=== PATIENT | male | born 1975 | race Caucasian/White ===

== ENCOUNTER 2021-04-02 11:21 | Emergency (ER) | payer OTHER, SELFPAY ==
--- NOTE | 2021-04-02 11:28 | ED_ITS ---
Documented by User: Marty De Souza MD 04/13/21 23:34 HPI - Wound/Laceration General: Chief Complaint: Wound/Laceration Stated Complaint: L ARM LAC Time Seen by Provider: 04/02/21 11:28 History of Present Illness: HPI narrative: Mr. Winston is a 45-year-old gentleman without significant past medical history presents to the emergency department due to laceration. 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 He describes venous bleeding but no pulsatile bright red bleeding. He denies numbness or tingling. Some associated discomfort within expected limits and worse without specific exacerbating factors. No other significant change to health, specific exacerbating or alleviating factors identified. Review of Systems General: Reports: 10 or more systems reviewed and unremarkable except in HPI and below PFSH ED PFSH: Medical History No pertinent past medical history Surgical History (Reviewed 04/02/21 @ 11: by Marty De Souza MD) No significant past surgical history Family History (Reviewed 04/02/21 @ 11: by Marty De Souza MD) Mother Hypertension Social History Smoking and tobacco status: never smoked Second hand smoke exposure: No Smoking risk assessment/counseling performed?: No Alcohol intake: current Alcohol intake frequency: 0-2 Drinks per Day Alcohol type: beer Counseling given: No Desire information about substance/drug rehabilitation?: No Counseling given: No Adopted: No Caregiver/support person: No Lives independently: Yes Household members: spouse Housing: House Marital status: Number of children: 3 Highest education level completed: High School Graduate service: No Current occupational status: employed Pets and animals: No History of recent travel: No Physical Exam Narrative: EXAM NARRATIVE: GENERAL/CONSTITUTIONAL - well-appearing. No acute distress. Eyes -no conjunctival injection, no conjunctival injection ENMT - Atraumatic external nose and ears. Moist mucous membranes NECK - supple. trachea midline CARDIOVASCULAR - tachycardic rate and regular rhythm. RESPIRATORY - No retractions or accessory muscle use. ABDOMEN/GI -no guarding. No distention. MSK -approximately 8 cm laceration to the anterior left forearm. Primarily exposing fatty layer. Distal CMS intact SKIN - Warm, Dry. Laceration is noted in MSK NEURO - alert and appropriately oriented. Moves all extremities equally. Course ED course: - Patient was seen and evaluated by me at bedside -Vital signs obtained - Initial evaluation notable for exam as noted above - Imaging notable for no radiopaque foreign body - Laceration repaired by Tone Lea JOURNEYMAN PRESSMAN, satisfactory closure without comp - Upon serial reexamination after treatment the patient was improved - Based on patient history, evaluation, labs, and imaging as interpreted the most likely cause of the patient's condition is laceration - The results of ED evaluation were discussed with the patient including prescriptions and/or symptomatic cares (if applicable) including appropriate and responsible use, followup plan, and return precautions. The patient verbalized understanding and felt safe for discharge. - Patient discharged in satisfactory condition. Vital Signs: Vital signs: Vital Signs Pulse Rate 108 H 04/02/21 13:23 Respiratory Rate 20 H 04/02/21 13:23 Blood Pressure 175/105 04/02/21 13:23 Pulse Oximetry 95 04/02/21 13:23 MDM - Wound/Laceration Medical Records: Attestation: I reviewed the patient's medical records. Lab Data: Attestation: I reviewed the patient's lab results. Discharge Plan Discharge Patient Disposition: Home Clinical Impression: Laceration Condition: Stable Prescriptions: No Action famciclovir 500 mg tablet 500 mg PO Q8H 7 Days Qty: 21 RF: 0 clotrimazole-betamethasone 1-0.05 % cream 1 applic topical BID 14 Days Qty: 45 RF: 0 Discharge Orders: Discharge ED (Routine); Ordered 04/02/21 Ordered By: Marty De Souza Referrals: Araceli Au FNP-C [Primary Care Provider] - Discharge Diet: Usual diet Discharge Activity: Increase activity as tolerated and Limit activity as instructed Patient Instructions: Care For Your Stitches (ED), Laceration (ED) Activity Restrictions/Additional Instructions: Thank you for visiting the emergency department. You were seen and evaluated for laceration. This was repaired with stitches. Given circumstances and examination of the wound you will be placed on antibiotics to help prevent infection. Please watch for signs of infection and return to the emergency department for uncontrolled pain, significant or worsening redness, purulent drainage, fevers, chills, or anything else that you are concerned about and feel needs emergency department evaluation. Your heart rate was mildly elevated. Please ensure that you are staying hydrated. Please return for chest pain, shortness of breath, lightheadedness, dizziness. Please follow-up with your primary care provider. Stitches need removal in 7 to 10 days. You may either return here or go to your primary care or any urgent care to have these removed. Coding Level of Care Code ED Curriculum Coordinator for Chg Fwd Documented by User: LEROY Sosa 04/02/21 13:37 HPI - Wound/Laceration General: Chief Complaint: Wound/Laceration Stated Complaint: L ARM LAC Time Seen by Provider: 04/02/21 11:28 PFSH ED PFSH: Medical History No pertinent past medical history Surgical History No significant past surgical history Family History Mother Hypertension Social History Smoking and tobacco status: never smoked Second hand smoke exposure: No Smoking risk assessment/counseling performed?: No Alcohol intake: current Alcohol intake frequency: 0-2 Drinks per Day Alcohol type: beer Counseling given: No Desire information about substance/drug rehabilitation?: No Counseling given: No Adopted: No Caregiver/support person: No Lives independently: Yes Household members: spouse Housing: House Marital status: Number of children: 3 Highest education level completed: High School Graduate service: No Current occupational status: employed Pets and animals: No History of recent travel: No Procedures Laceration Laceration 1: Site: upper extremity Side (If applicable): left Size (cm): 8 Description: irregular Depth: simple, single layer Local Anesthetic: lidocaine 1% Amount of anesthesia used (mL): 5 Pre-repair: wound explored, irrigated extensively and deep structures intact Skin layer closed with: nylon Size (cm): 4-0 Number of sutures: 12 Technique: simple, interrupted Course Vital Signs: Vital signs: Vital Signs Pulse Rate 108 H 04/02/21 13:23 Respiratory Rate 20 H 04/02/21 13:23 Blood Pressure 175/105 04/02/21 13:23 Pulse Oximetry 95 04/02/21 13:23 Discharge Plan Discharge Patient Disposition: Home Clinical Impression: Laceration Condition: Stable Prescriptions: No Action famciclovir 500 mg tablet 500 mg PO Q8H 7 Days Qty: 21 RF: 0 clotrimazole-betamethasone 1-0.05 % cream 1 applic topical BID 14 Days Qty: 45 RF: 0 Discharge Orders: Discharge ED (Routine); Ordered 04/02/21 Ordered By: Marty De Souza Referrals: Araceli Au FNP-C [Primary Care Provider] - Discharge Diet: Usual diet Discharge Activity: Increase activity as tolerated and Limit activity as instructed Patient Instructions: Care For Your Stitches (ED), Laceration (ED) Activity Restrictions/Additional Instructions: Thank you for visiting the emergency department. You were seen and evaluated for laceration. This was repaired with stitches. Given circumstances and examination of the wound you will be placed on antibiotics to help prevent infection. Please watch for signs of infection and return to the emergency department for uncontrolled pain, significant or worsening redness, purulent drainage, fevers, chills, or anything else that you are concerned about and feel needs emergency department evaluation. Your heart rate was mildly elevated. Please ensure that you are staying hydrated. Please return for chest pain, shortness of breath, lightheadedness, dizziness. Please follow-up with your primary care provider. Stitches need removal in 7 to 10 days. You may either return here or go to your primary care or any urgent care to have these removed. Coding Level of Care Code ED Curriculum Coordinator for Scout Ruiz
[2021-04-02 11:36] VITALS: BMI 32.5
[2021-04-02 11:41] VITALS: BP 175/105; PULSE 108; RESP 20; O2SAT 95
--- NOTE | 2021-04-02 11:45 | XRR_ITS ---
PROCEDURE INFORMATION: Exam: XR Left Forearm Exam date and time: 04/02/2021 11:45 AM Age: 45 years old Clinical indication: Injury or trauma; Fall; Laceration; Arm, lower; Left; Additional info: Laceration mid-distal anterior forearm, ? foreign body TECHNIQUE: Imaging protocol: XR Left forearm. Views: 2 views. COMPARISON: No relevant prior studies available. FINDINGS: Bones/joints: Normal. Soft tissues: Soft tissue laceration over the volar aspect of the distal forearm. XR/XR forearm LT 2V [id number] IMPRESSION: 1. Soft tissue laceration over the volar aspect of the distal forearm. 2. No radiopaque foreign body.
--- NOTE | 2021-04-02 12:53 | ED_ITS ---
HPI - Wound/Laceration General: Chief Complaint: Wound/Laceration Stated Complaint: L ARM LAC Time Seen by Provider: 04/02/21 11:28 [facility] ED PFSH: Medical History (Reviewed 04/02/21 @ : by Marty De Souza MD) No pertinent past medical history Surgical History (Reviewed 04/02/21 @ : by Marty De Souza MD) No significant past surgical history Family History (Reviewed 04/02/21 @ : by Marty De Souza MD) Mother Hypertension Social History (Reviewed 04/02/21 @ : by Marty De Souza MD) Smoking and tobacco status: never smoked Second hand smoke exposure: No Smoking risk assessment/counseling performed?: No Alcohol intake: current Alcohol intake frequency: 0-2 Drinks per Day Alcohol t ype: beer Counseling given: No Desire information about substance/drug rehabilitation?: No Counseling given: No Adopted: No Caregiver/support person: No Lives independently: Yes Household members: spouse Housing: House Marital status: Number of children: 3 Highest education level completed: High School Graduate service: No Current occupational status: employed Pets and animals: No History of recent travel: No Procedures Laceration Laceration 1: Site: upper extremity Side (If applicable): left Size (cm): 8 Description: irregular and contaminated Depth: simple, single layer Local Anesthetic: lidocaine 1% Amount of anesthesia used (mL): 5 Pre-repair: wound explored and irrigated extensively Skin layer closed with: nylon (12) Size (cm): 4-0 Number of sutures: 12 Technique: simple, interrupted Course Vital Signs: Vital signs: Vital Signs Pulse Rate 108 H 04/02/21 11:41 Respiratory Rate 20 H 04/02/21 11:41 Blood Pressure 175/105 04/02/21 11:41 Pulse Oximetry 95 04/02/21 11:41 Discharge Plan Discharge Patient Disposition: Home Clinical Impression: Laceration Condition: Stable Prescriptions: New cephalexin 500 mg capsule 500 mg PO Q6H 7 Days Qty: 28 RF: 0 No Action famciclovir 500 mg tablet 500 mg PO Q8H 7 Days Qty: 21 RF: 0 clotrimazole-betamethasone 1-0.05 % cream 1 applic topical BID 14 Days Qty: 45 RF: 0 Referrals: Roe,Araceli, EARLY BREASTFEEDING CARE SPECIALIST-C [Primary Care Provider] - Discharge Diet: Usual diet Discharge Activity: Increase activity as tolerated and Limit activity as instructed Patient Instructions: Care For Your Stitches (ED), Laceration (ED) Activity Restrictions/Additional Instructions: Thank you for visiting the emergency department. You were seen and evaluated for laceration. This was repaired with stitches. Given circumstances and examination of the wound you will be placed on antibiotics to help prevent infection. Please watch for signs of infection and return to the emergency department for uncontrolled pain, significant or worsening redness, purulent drainage, fevers, chills, or anything else that you are concerned about and feel needs emergency department evaluation. Your heart rate was mildly elevated. Please ensure that you are staying hydrated. Please return for chest pain, shortness of breath, lightheadedness, dizziness. Please follow-up with your primary care provider. Stitches need removal in 7 to 10 days. You may either return here or go to your primary care or any urgent care to have these removed. Coding Level of Care Code ED Traffic Law Attorney for [employer]uot Ruiz
[2021-04-02] MEDS: tetanus-dipt-pertussis 0.5 mL SDV IM (13:06)
[2021-04-02 13:23] VITALS: BP 175/105; PULSE 108; RESP 20; O2SAT 95
== END 2021-04-02 13:25 | disposition home or self-care (01) ==
PROVIDERS: Emergency Provider Emergency Medicine; PCP Nurse Practitioner Family
DX: S51.812A Laceration without foreign body of left forearm, initial encounter (principal); W26.8XXA Contact with other sharp object(s), not elsewhere classified, initial encounter; Z23 Encounter for immunization
CPT/HCPCS: 12004; 73090; 90471; 90715; 99283

== ENCOUNTER 2022-07-24 09:58 | Emergency (ER) | payer BC, MEDICAID, SELFPAY ==
[2022-07-24] VITALS (12 sets, daily range): BP systolic 121–130; BP diastolic 72–85; PULSE 104–109; RESP 16–18; TEMP 36.2–37.2; O2SAT 97–100; BMI 29.0
--- NOTE | 2022-07-24 12:46 | XRR_ITS ---
PROCEDURE INFORMATION: Exam: XR Abdomen Exam date and time: 07/24/2022 12:51 PM Age: 46 years old Clinical indication: Nausea and vomiting; Abdominal pain; Prior surgery; Surgery type: Hip; Additional info: Abd pain, n/v TECHNIQUE: Imaging protocol: Radiologic exam of the abdomen. Views: Frontal supine view of the abdomen. 1 View. COMPARISON: No relevant prior studies available. FINDINGS: Gastrointestinal tract: Bowel gas pattern is unremarkable. No sign of obstruction. Intraperitoneal space: No gross free air. Bones/joints: There is mild degenerative disease in the lumbar spine. The right hip prosthesis is intact and well aligned. XR/XR abdomen 1V* [id number] IMPRESSION: No acute findings.
--- NOTE | 2022-07-24 13:27 | PC.NURSE ---
rounded on pt, vitals retaken
[2022-07-24 14:04] LABS: Basophils # 0.1 10^3/uL (0.0-0.1); Basophils % 0.7 %; Eosinophils # 0.6 10^3/uL (0.0-0.8); Eosinophils % 5.4 %; Hematocrit 26.6 % (42.0-52.0); Hemoglobin 8.5 g/dL (11.7-16.6); Lymphocytes # 1.3 10^3/uL (0.8-4.8); Lymphocytes % 10.9 %; Mean Corpuscular Volume 90.8 fl (80-94); Mean Platelet Volume 11.1 fL (7.4-10.4); Monocytes % 8.3 %; Neutrophils # 8.73 10^3/uL (1.8-7.7); Neutrophils % 74.1 %; Nucleated Red Blood Cells % 0 %; Platelet Count 209 10^3/cmm (130-400); Red Blood Count 2.93 10^6/uL (4.1-5.3); Red Cell Distribution Width 14.7 % (12.1-15.1); White Blood Count 11.8 10^3/uL (4.0-10.0)
[2022-07-24 14:17] LABS: INR 1.29 (0.8-1.2)
[2022-07-24 14:23] LABS: Alanine Aminotransferase 103 U/L (0-41); Albumin Level 3.6 g/dL (3.5-5.2); Alkaline Phosphatase 719 U/L (40-130); Anion Gap 16.3 (5-19); Aspartate Amino Transferase 110 U/L (0-40); Blood Urea Nitrogen 15 mg/dL (6-20); Carbon Dioxide 26 mmol/L (22-29); Chloride 96 mmol/L (98-107); Globulin 2.9 g/dL (1.3-4.6); Glomerular Filtration Rate 144.4 mL/min (90-130); Glucose 155 mg/dL (65-115); Lipase 17 U/L (13-60); Osmolality Calculated 282 mOsm/kg (285-295); Potassium 4.3 mmol/L (3.5-5.1); Sodium 134 mmol/L (136-145); Total Bilirubin 1.2 mg/dL (0.15-1.2); Total Protein 6.5 g/dL (6.6-8.7)
--- NOTE | 2022-07-24 14:37 | ED_ITS ---
HPI - Abdominal Pain General: Chief Complaint: Abdominal Pain Stated Complaint: Light headed, feeling sick. Time Seen by Provider: 07/24/22 14:28 Source: patient Mode of arrival: ambulatory History of Present Illness: 46-year-old female who presents to the emergency room with complaints of being lightheaded sick to stomach chronic abdominal pain for last couple of months. He has noticed his stools have turned black he has been using Pepto-Bismol on occasion. Is been going on for about the last 6 months. Denies any dysuria urgency or frequency has not had any hematemesis he has had this small amount of black flecks and some vomitus he had. Patient has no significant past medical history and course taking his regular history patient admits to drinking 12 pack or more per day. MD elicited complaint: abdominal pain Pertinent past history: none Onset (ago): month(s) (6) Pain Consistency: intermittent Location: Epigastric Severity: mild Quality: aching Radiation: none Migration to: no migration Exacerbating factors: nothing Relieving factors: nothing Associated Symptoms: Reports coffee ground emesis (Small flecks of black material in vomitus no large amounts); Denies anorexia, belching, bloating, change in bowel habits, change in stool character, chills, constipation, GI cramping, diarrhea, dyspepsia, dysuria, excessive flatus, fever(s), heartburn, hematochezia, hematuria, hematemesis, fecal incontinence, loose stools, melena, nausea, poor appetite, syncope and vomiting Review of Systems Const: Denies: fever(s), chills, fatigue or malaise ENMT: Denies: throat pain, ear or mastoid pain, nasal discharge or nasal congestion Card: Denies: chest pain, palpitations, irregular heart rhythm, edema, swelling of feet/ankles or syncope Resp: Denies: dyspnea, productive cough or non-productive cough GI: Reports: abdominal pain and coffee ground emesis (Small flecks of black material in vomitus no large amounts); Denies: nausea, vomiting, hematemesis, heartburn, diarrhea, constipation, bloating, GI cramping, belching, excessive flatus, fecal incontinence, change in bowel habits, change in stool character, hematochezia or melena : Denies: flank pain, dysuria, urinary frequency, urinary urgency or hematuria Skin/Breast: Denies: rash or pruritus PFSH ED PFSH: Medical History No pertinent past medical history Surgical History No significant past surgical history Family History Mother Hypertension Social History (Updated 07/24/22 @ 14:44 by Homero Woo DO) Smoking and tobacco status: never smoked Second hand smoke exposure: No Smoking risk assessment/counseling performed?: No Alcohol intake: current Alcohol intake frequency: 3 or more drinks per day Alcohol type: beer Alcohol use comment: 12 pack a day beer plus Counseling given: No Desire information about substance/drug rehabilitation?: No Counseling given: No Adopted: No Caregiver/support person: No Lives independently: Yes Household members: spouse Housing: House Marital status: Number of children: 3 Highest education level completed: High School Graduate service: No Current occupational status: employed Pets and animals: No Physical Exam Const: COMMON NORMALS: no acute distress GENERAL APPEARANCE: cooperative and comfortable ORIENTATION/CONSCIOUSNESS: Yes awake, Yes oriented to person, Yes oriented to place and Yes oriented to time HENMT: COMMON NORMALS: normocephalic, atraumatic and hearing grossly normal bilaterally HEAD & SCALP: normocephalic and atraumatic Resp: COMMON NORMALS: normal respiratory effort, No retractions, No use of accessory muscles and clear to auscultation bilaterally AUSCULTATION: clear to auscultation bilaterally Cardio: COMMON NORMALS: regular rate, regular rhythm and No murmurs present (Cardio) RATE: regular rate RHYTHM: regular rhythm GI: COMMON NORMALS: Soft to palpation and No hepatosplenomegaly present AUSCULTATION: Yes normoactive bowel sounds PALPATION: Yes Soft to palpation, No Tenderness to palpation present (GI), No Guarding due to palpation present (GI) and Yes No hepatosplenomegaly present Extremity: COMMON NORMALS: normal to inspection, capillary refill normal, no clubbing, cyanosis or edema, no calf tenderness and no pedal edema Neuro: SENSORIUM/ORIENTATION: Yes oriented to person, Yes oriented to place and Yes oriented to time Skin: COMMON NORMALS: no rashes or lesions noted GENERAL SKIN EXAM: no rashes or lesions noted Course Vital Signs: Vital signs: Vital Signs Temperature 98.9 F 07/24/22 13:24 Pulse Rate 104 H 07/24/22 13:24 Respiratory Rate 18 07/24/22 17:59 Blood Pressure 130/85 07/24/22 15:05 Pulse Oximetry 99 07/24/22 15:05 Oxygen Delivery Me thod 07/24/22 13:24 MDM - Abdominal Pain Medical Decision Making Mass in the left upper quadrant emanating from tail of the pancreas with what appears to be metastasis to the liver. Patient has Hemoccult positive stools however his BUN is normal. Long discussion with patient and his . Shows hemoglobin rechecked in the next 1 to 2 days. We will set him up for biopsy. He has been given fluids. We will discharge patient home on a PPI as well as hydrocodone and promethazine. We will refer to radiology for CT-guided biopsy. Medical Records I reviewed the patient's medical records. Lab Data I reviewed the patient's lab results. 07/24/22 13:30 07/24/22 13:30 Labs/Radiology: Radiology Impressions Abdomen X-Ray 07/24/22 12:46 IMPRESSION: No acute findings. Abdomen/Pelvis CT 07/24/22 14:37 IMPRESSION: 1. Left upper quadrant mass which appears to be arising from the pancreas body and tail invading the spleen, stomach as well as the superior pole of the left kidney. 2. Metastatic disease to the liver with a small amount of ascites. 3. Metastatic lymph node suspected in the mid abdomen. COMMENTS: Consistent with the [employer]'s Incidental Findings Committee white paper (J Am Kumar Radiol 2018): Any incidental renal lesion less than 1 cm or classified as too small to characterize, or any incidental cystic renal lesion characterized as simple-appearing, is likely benign. No follow-up imaging is recommended for these lesions per consensus recommendations based on imaging criteria. ADDENDUM: 07/24/22 0420 THIS REPORT CONTAINS FINDINGS THAT MAY BE CRITICAL TO PATIENT CARE. The findings were verbally communicated by me to HOMERO WOO at 4:32 PM CRAFT SUPERINTENDENT on 07/24/2022. The findings were acknowledged and understood. I In addition there is a mesenteric large implant seen just below the hemidiaphragm in the left upper quadrant measuring 36 x 20 mm image 07/01. Laboratory Results WBC 11.8 10^3/uL (4.0-10.0) H 07/24/22 13:30 RBC 2.93 10^6/uL (4.1-5.3) L 07/24/22 13:30 Hgb 8.5 g/dL (11.7-16.6) L 07/24/22 13:30 Hct 26.6 % (42.0-52.0) L 07/24/22 13:30 MCV 90.8 fl (80-94) 07/24/22 13: MCH 29.0 pg (28.0-34.0) 07/24/22 13: MCHC 32.0 g/dL (30.0-36.0) 07/24/22 13: RDW 14.7 % (12.1-15.1) 07/24/22 13:30 Plt Count 209 10^3/cmm (130-400) 07/24/22 13: MPV 11.1 fL (7.4-10.4) H 07/24/22 13:30 Neut % (Auto) 74.1 % 07/24/22 13:30 Lymph % (Auto) 10.9 % 07/24/22 13:30 [place] % (Auto) 8.3 % 07/24/22 13:30 Eos % (Auto) 5.4 % 07/24/22 13:30 Baso % (Auto) 0.7 % 07/24/22 13:30 Neut # (Auto) 8.73 10^3/uL (1.8-7.7) H 07/24/22 13:30 Lymph # (Auto) 1.3 10^3/uL (0.8-4.8) 07/24/22 13:30 [place] # (Auto) 1.0 10^3/uL (0.2-0.9) H 07/24/22 13:30 Eos # (Auto) 0.6 10^3/uL (0.0-0.8) 07/24/22 13:30 Baso # (Auto) 0.1 10^3/uL (0.0-0.1) 07/24/22 13:30 Nucleated RBC % (auto) 0 % 07/24/22 13:30 Nucleated RBCs # 0.0 /100WBC 07/24/22 13:30 PT 16.50 SECONDS (12.1-14.9) H 07/24/22 13:30 INR 1.29 (0.8-1.2) H 07/24/22 13:30 Sodium 134 mmol/L (136-145) L 07/24/22 13:30 Potassium 4.3 mmol/L (3.5-5.1) 07/24/22 13:30 Chloride 96 mmol/L (98-107) L 07/24/22 13:30 Carbon Dioxide 26 mmol/L (22-29) 07/24/22 13:30 Anion Gap 16.3 (5-19) 07/24/22 13:30 BUN 15 mg/dL (6-20) 07/24/22 13:30 Creatinine 0.6 mg/dL (0.7-1.2) L 07/24/22 13:30 GFR Calculation 144.4 mL/min (90-130) H 07/24/22 13:30 Glucose 155 mg/dL (65-115) H 07/24/22 13:30 Calculated Osmolality 282 mOsm/kg (285-295) L 07/24/22 13:30 Calcium 9.0 mg/dL (8.5-10.5) 07/24/22 13:30 Total Bilirubin 1.2 mg/dL (0.15-1.2) 07/24/22 13:30 AST 110 U/L (0-40) H 07/24/22 13:30 ALT 103 U/L (0-41) H 07/24/22 13:30 Alkaline Phosphatase 719 U/L (40-130) H 07/24/22 13:30 Ammonia 29 umol/L (16-60) 07/24/22 14:42 Total Protein 6.5 g/dL (6.6-8.7) L 07/24/22 13:30 Albumin 3.6 g/dL (3.5-5.2) 07/24/22 13:30 Globulin 2.9 g/dL (1.3-4.6) 07/24/22 13:30 Lipase 17 U/L (13-60) 07/24/22 13:30 Discharge Plan Discharge Patient Disposition: Home Clinical Impression: Pancreatic mass, Cancer, metastatic to liver, Anemia Condition: Stable Prescriptions: New Protonix 40 mg tablet,delayed release (DR/EC) 40 mg PO DAILY Qty: 30 0RF hydrocodone-acetaminophen 5-325 mg tablet 1 tab PO Q6H PRN (Reason: pain) Qty: 30 0RF ondansetron HCl 4 mg tablet 4 mg PO Q6H PRN (Reason: nausea and vomiting) Qty: 20 0RF No Action ibuprofen 200 mg Tablet 800 mg PO Q6H PRN (Reason: Pain) acetaminophen 325 mg Capsule 650 mg PO QID PRN (Reason: Pain) Aleve 220 mg Capsule 880 mg PO Q12H PRN (Reason: Pain) Discharge Orders: Discharge ED (Routine); Ordered 07/24/22 Ordered By: Homero Woo Referrals: Araceli Au FNP-C [Primary Care Provider] - Discharge Diet: Usual diet Discharge Activity: Resume usual activity Patient Instructions: Opioid Safety, Pain Management Activity Restrictions/Additional Instructions: LargeYou were seen for complaints of nausea vomiting back pain and weight loss. CT shows significantly pancreatic mass and changes in the liver concerning for metastatic disease. We will make arrangements for you to have a biopsy of these lesions anticipate a CT-guided liver biopsy with radiology Case management will help make those arrangements. Recommend that you abstain from alcohol. You are given prescriptions for pantoprazole 40 mg daily ondansetron and hydrocodone for pain avoid any ibuprofen or aspirin. Your hemoglobin was also significantly lowered and you should have a repeat hemoglobin done in 2 days. Coding Level of Care Code ED Technical Services Assistant for Scout Ruiz
--- NOTE | 2022-07-24 14:37 | CTR_ITS ---
PROCEDURE INFORMATION: Exam: CT Abdomen And Pelvis Without Contrast Exam date and time: 07/24/2022 3:12 PM Age: 46 years old Clinical indication: Abdominal pain TECHNIQUE: Imaging protocol: Computed tomography of the abdomen and pelvis without contrast. Radiation optimization: All CT scans at this facility use at least one of these dose optimization techniques: automated exposure control; mA and/or kV adjustment per patient size (includes targeted exams where dose is matched to clinical indication); or iterative reconstruction. REPORTING DATA: Count of CT and Cardiac NM exams in prior 12 months: This patient has received 0 known CTs and 0 known cardiac nuclear medicine studies in the 12 months prior to the current study. COMPARISON: CR XR abdomen 1V* [id number] 07/24/2022 12:51 PM RADIATION DOSE METRICS: Total DLP (mGy-cm): 859.22 FINDINGS: Lungs: 5 mm right lower lobe granuloma. Liver: Multiple ill-defined lesions are seen throughout the liver suggestive of advanced metastatic disease. Gallbladder and bile ducts: Normal. No calcified stones. No ductal dilation. Pancreas: Large mass in the left upper quadrant possibly arising from the pancreas measuring over 116 x 101 mm. This is growing into the spleen as well as the stomach. Spleen: See Pancreas finding. Adrenal glands: Normal. No mass. Kidneys and ureters: The mass in the left upper quadrant grows to and possibly invades the superior aspect of the left kidney. There is no hydronephrosis. Stomach and bowel: Diverticulosis. Appendix: The appendix is unremarkable in the right lower quadrant. Intraperitoneal space: Small amount of pelvic fluid. Vasculature: Unremarkable. No abdominal aortic aneurysm. Lymph nodes: Multiple lymph nodes within the abdomen separate indistinct from the mass measuring up to 20 x 13 mm suggestive of metastatic disease. Urinary bladder: Unremarkable as visualized. Reproductive: Unremarkable as visualized. Bones/joints: Mild arthritic changes. Artifact from a right hip replacement. Soft tissues: Unremarkable. CT/CT abdomen pelvis wo con [id number] IMPRESSION: 1. Left upper quadrant mass which appears to be arising from the pancreas body and tail invading the spleen, stomach as well as the superior pole of the left kidney. 2. Metastatic disease to the liver with a small amount of ascites. 3. Metastatic lymph node suspected in the mid abdomen. COMMENTS: Consistent with the [employer] [employer]'s Incidental Findings Committee white paper (J Am Kumar Radiol 2018): Any incidental renal lesion less than 1 cm or classified as too small to characterize, or any incidental cystic renal lesion characterized as simple-appearing, is likely benign. No follow-up imaging is recommended for these lesions per consensus recommendations based on imaging criteria.
[2022-07-24 15:10] LABS: Ammonia 29 umol/L (16-60)
[2022-07-24] MEDS: pantoprazole 40 MG in sodium chloride 0.9% (plus) 100 ML 20 MG IV (16:15)
--- NOTE | 2022-07-25 09:10 | DCPLANNER ---
Addendum entered by Latricia Ruiz 08/01/22 07:48: Patient had a CT scheduled - patient did attend Patient had a liver biopsy scheduled - patient did not attend Addendum entered by Latricia Ruiz 07/26/22 08:04: Patient has a CT abdomen scheduled for Sunday, July 26, 2022 at 9:00 Patient has a liver biopsy scheduled for July at 10:00 Original Note: sr. strategic sourcing manager had message to schedule an outpatient CT abdomen pelvis, and a CT guided biopsy. sr. strategic sourcing manager faxed signed order to centralized scheduling, who will call patient with appointment information.
== END 2022-07-24 18:00 | disposition home or self-care (01) ==
PROVIDERS: Emergency Medicine; Emergency Provider Family Medicine; PCP Nurse Practitioner Family
DX: C25.9 Malignant neoplasm of pancreas, unspecified (principal); C78.7 Secondary malignant neoplasm of liver and intrahepatic bile duct; D64.9 Anemia, unspecified
CPT/HCPCS: 36415; 74018; 74176; 80053; 82140; 83690; 85025; 85610; 96365; 96366; 99285; C9113

== ENCOUNTER 2022-07-26 08:19 | Outpatient (CLI) | payer BC, MEDICAID, SELFPAY ==
--- NOTE | 2022-07-26 08:28 | CT_ITS ---
WS: [id number] CT ABDOMEN AND PELVIS WITH CONTRAST HISTORY: PANCREATIC MASS, LIVER TECHNIQUE: Imaging performed of the abdomen and pelvis with IV contrast. Single phase imaging of the abdomen. Coronal and sagittal reformats are submitted. All CT scans at [facility] use at [facility] [facility] one of these dose optimization techniques: automated exposure control; mA and/or kV adjustment per patient size (includes targeted exams where dose is matched to clinical indication); or iterative re construction. IV CONTRAST: Omnipaque 350; 100 mL IV. Oral contrast: Yes. DLP: 638.13 mGy.cm COMPARISON: Noncontrast CT 07/24/2022 Lower thorax: Spiculated 11 mm nodule medial RIGHT lower lobe. Heart is normal size. No hiatal hernia . Liver/biliary system: Numerous low-attenuation masses scattered throughout the liver most consistent with metastatic disease. The largest with irregular borders in the RIGHT lobe of the liver measures 2 .5 x 2.8 cm. No bile duct dilatation. Portal vein is patent. Tumor does encase the RIGHT portal vein and may be partially occluded. Gallbladder: Mildly contracted. Pancreas: Abnormal appearance of the distal pancreatic body and tail. There is a large mass of low at tenuation centered in the LEFT upper quadrant with extension into the pancreas, stomach, splenic hilu m and superior pole of the LEFT kidney. Low-attenuation mass with mild enhancement measures 12.0 x 10.2 x 9.0 cm. This mass is contiguous to the distal pancreas and extends into the superior pole of the RIGHT LEFT kidney and the splenic hilum and the gastric wall. Spleen: Spleen is normal size. Hilar invasion from the tumor in the LEFT upper abdomen. There is akil tional area of decreased attenuation in the spleen which could be a focal metastatic deposit. Adrenal glands: Normal RIGHT adrenal gland. LEFT adrenal gland is not well visualized and is probably encased by the LEFT upper abdominal mass. Right kidney: Normal size kidney. Subtle low-attenuation area in the mid kidney. Left kidney: Normal size kidney. Soft tissue tumor invasion into the very superior pole of the kidney . Loss of the normal fat plane. Aorta: Normal. Lymphadenopathy: Small lymph nodes along the anterior surface of the liver. There are small mesenteri c nodules LEFT upper abdomen. Metastatic deposits throughout the mesentery. Additional mesenteric dep osit along the omentum LEFT upper abdomen. The largest mesenteric deposit measures 1.9 x 4.3 cm at th e level of the spleen. Free fluid: Small amount of free fluid in the pelvis. GI tract: Poor distention of the stomach due to tumor invasion. No small bowel obstruction. No colon obstruction. Abdominal wall: Unremarkable abdominal wall. No hernia. Pelvis: Small amount of free fluid in the pelvis. Nondistended urinary bladder. No inguinal lymph nod es. Bones: Prior RIGHT hip arthroplasty. CT/CT abdomen pelvis w con* [id number] IMPRESSION: 1. Large infiltrating soft tissue mass in the LEFT upper abdomen. Neoplastic m ass measures 12.0 x 10.2 x 9.0 cm. Mass invades and involves the distal pancrea tic body and tail, splenic hilum, superior pole RIGHT kidney and stomach. 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 2. Innumerable metastatic lesions within the liver. 3. Innumerable mesenteric and omental mesenteric deposits. 4. Spiculated 11 mm nodule medial RIGHT lower lobe. 5. Nonvisualization of a normal LEFT adrenal gland. Suspect invasion by LEFT u pper quadrant abdomen tumor. Recommendation: Biopsy for diagnosis. Endoscopy may be the most advantageous way to biopsy the mass in the LEFT upper quadrant. Alternatively ultrasound-guided liver biopsy. PET/CT imaging. Notified Dr. Ravi 07/26/2022 12:22 PM.
[2022-07-26] MEDS: iohexol 350 mg/mL 100 mL Btl IV (09:52)
[2022-07-26] MEDS: iohexol 350 mg/mL 100 mL Btl PO (09:52)
== END 2022-07-26 08:20 | disposition home or self-care (01) ==
LOC: RAD 08:24
PROVIDERS: PCP Nurse Practitioner Family; Visit Provider Family Medicine
DX: K86.89 Other specified diseases of pancreas (principal); C78.7 Secondary malignant neoplasm of liver and intrahepatic bile duct
CPT/HCPCS: 74177; Q9967

== ENCOUNTER 2022-07-27 08:53 | Day surgery (SDC) | payer BC, MEDICAID, SELFPAY ==
[2022-07-27 07:48] VITALS: BMI 29.0
[2022-07-27 09:04] VITALS: BP 135/78; PULSE 93; RESP 18; TEMP 36.9; O2SAT 99
[2022-07-27] MEDS: sodium chloride 0.9% 1,000 ML 30 ML IV (09:19)
--- NOTE | 2022-07-27 09:36 | ANES.PREANE2 ---
Pre-Anesthetic Assessment Height/Weight: Height 1.83 m Weight 97.069 kg Temp Pulse Resp BP Pulse Ox O2 Del Method 98.4 F 93 18 135/78 99 07/27/22 09:04 07/27/22 09:04 07/27/22 09:04 07/27/22 09:04 07/27/22 09:04 07/27/22 09:04 Operation Date: 07/27/22 10:00 Proposed Procedures p EGD 36675,K21.9(Not Applicable) - Homer Merino, DO Was Beta Ayla taken within 24 hours: N/A Was Clonidine taken within 24 hours: N/A Last intake: Intake Last Liquid Date 07/26/22 Last Liquid Time 22:30 Last Solid Date 07/26/22 Last Solid Time 22:30 Social Alcohol and No tobacco daily alcohol, last a couple days ago Exam alert, oriented x 3, clear to auscultation bilaterally and regular rate & rhythm Airway Submandibular: within normal limits Cervical ROM: within normal limits Mallampati: Class I Dentition: chipped Comments: Comments: front tooth chipped History/ROS No significant history except as noted Pulmonary None reported CV/HEM None reported None reported Hepatic Cirrhosis GI Gastroesophageal Reflux Disease Metabolic None reported liver mets cancer [facility] [place] chronic pain Neuropsych None reported Anesthetic Plan ASA status: 3 Anesthesia: Anesthesia Evaluation and MAC Risk of > 500 ml blood loss (7ml/kg in children): Yes, adequate IV access and fluids planned Medications/Allergies Home Medications Medication Instructions Recorded Confirmed Last Taken Type hydrocodone 5 mg-acetaminophen 325 1 tab PO Q6H PRN pain #30 tabs 07/24/22 07/27/22 07/27/22 Rx mg tablet ondansetron HCl 4 mg tablet 4 mg PO Q6H PRN nausea and 07/24/22 07/27/22 07/26/22 Rx vomiting #20 tabs pantoprazole 40 mg tablet,delayed 40 mg PO DAILY #30 tabs 07/24/22 07/27/22 07/26/22 Rx release (Protonix) magnesium hydroxide 400 mg/5 mL See Rx Instructions PO DAILY PRN 07/26/22 07/27/22 Unknown Rx oral suspension (Milk of Magnesia) constipation #355 mL sertraline 50 mg tablet (Zoloft) 50 mg PO DAILY #30 tabs 07/26/22 07/27/22 Unknown Rx Allergies Allergy/AdvReac Type Severity Reaction Status Date / Time No Known Allergies Allergy Unverified 07/27/22 09:02 Current Medications Generic Name Dose Route Start Last Admin Trade Name Sonya PRN Reason Stop Dose Admin Sodium Chloride 1,000 mls @ 30 mls/hr 07/27/22 09:00 07/27/22 09:19 Sodium Chloride 0.9% IV 07/28/22 08:59 30 mls/hr .Q24H JEREL Administration PFSH Anesthesia Medical History (Updated 07/26/22 @ 20:56 by RYLEE Greenfield) Anemia Cancer, metastatic to liver Daily consumption of alcohol 12 beer day years Pancreatic mass Surgical History History of hip replacement Right 09/01/21 Family History Mother Hypertension Denies family history of Dementia Cancer Stroke Social History Smoking and tobacco status: never smoked Second hand smoke exposure: No Smoking risk assessment/counseling performed?: No Alcohol intake: current Alcohol intake frequency: 3 or more drinks per day Alcohol type: beer Counseling given: No Desire information about substance/drug rehabilitation?: No Counseling given: No Adopted: No Caregiver/support person: No Lives independently: Yes Household members: spouse Housing: House Marital status: Number of children: 3 Highest education level completed: High School Graduate service: No Current occupational status: employed Pets and animals: No Data Anesthesia Cardiac Studies: No Data to Display
--- NOTE | 2022-07-27 09:38 | W.PM.OPSUD ---
Surgery/Procedure H&P Update DATE OF PROCEDURE: July 27, 2022 DATE H&P PERFORMED: 07/26/22 H&P UPDATE INFORMATION: I have reviewed H&P completed within last 30 days, I have examined patient prior to procedure and No changes to prior documentation PLANNED PROCEDURE: Operation Date: 07/27/22 10:00 Proposed Procedures p EGD [id number],K21.9(Not Applicable) - Homer Merino, DO
[2022-07-27 09:59] LABS: Hematocrit 28.4 % (42.0-52.0); Hemoglobin 8.8 g/dL (11.7-16.6)
[2022-07-27 10:16] VITALS: BP 106/69; PULSE 102; RESP 16; TEMP 36.4; O2SAT 95
[2022-07-27 10:27] VITALS: BP 116/77; PULSE 100; RESP 18; O2SAT 96
--- NOTE | 2022-07-27 13:30 | ANE.PACU2 ---
Inpatient post-anesthesia follow up: Airway intact: Yes Vital signs: Temperature 97.5 F Pulse Rate 100 Respiratory Rate 18 Blood Pressure 116/77 Pulse Oximetry 96 Oxygen Delivery Me thod Room Air Oxygen Flow Rate 3 Fraction of Inspir ed Oxygen Hydration adequate: Yes Nausea and vomiting: No Pain level: 1 Mental status: Baseline
[2022-08-02 15:24] LABS: Miscellaneous Test See Scanned Lab Rpt
== END 2022-07-27 11:18 | disposition home or self-care (01) ==
PROVIDERS: PCP Nurse Practitioner; Visit Provider Surgery
PROC: 0DJ08ZZ Inspection of Upper Intestinal Tract, Via Natural or Artificial Opening Endoscopic (ICD-10-PCS; CPT 43235; principal; 2022-07-27 10:00)
DX: C16.2 Malignant neoplasm of body of stomach (principal); K21.9 Gastro-esophageal reflux disease without esophagitis; K29.50 Unspecified chronic gastritis without bleeding; B96.81 Helicobacter pylori [H. pylori] as the cause of diseases classified elsewhere; K22.89 Other specified disease of esophagus; G89.29 Other chronic pain; Z79.891 Long term (current) use of opiate analgesic; F10.90 Alcohol use, unspecified, uncomplicated
CPT/HCPCS: 36415; 43239; 85014; 85018; 88305; 88342; 88361; 88374; J2250; J2704; J7030

== ENCOUNTER 2022-08-03 14:03 | Oncology outpatient (recurring) (ONCR) | payer BC, MEDICAID, SELFPAY | END 2022-08-20 23:59 | disposition home or self-care (01) | PROVIDERS: PCP Nurse Practitioner; Visit Provider Internal Medicine Hematology & Oncology | DX: C25.8 Malignant neoplasm of overlapping sites of pancreas (principal) ==

== ENCOUNTER 2022-08-04 06:37 | Emergency (ER) | payer BC, MEDICAID, SELFPAY ==
--- NOTE | 2022-08-04 06:44 | USCV_ITS ---
Chaitanya Winston Age: 46 Gender: M : 1975 Exam Date: 08/04/2022 07:26 Ordering Phys: Homero Kauffman DO Technologist: JASIEL [place] [facility] [place] Indication: lower extremity swelling FINDINGS: There is evidence of acute right lower extremity deep venous thrombosis. There is evidence of acute left lower extremity deep venous thrombosis. CONCLUSIONS RIGHT LE DVT in the femoral vein distally, Popliteal vein, peroneal, and PTV RIGHT thrombus GSV below the knee LEFT LE DVT profunda, PTV distally Tbrombus LEFT GSV above and below the knee Ravi Velazquez MD (Electronically Signed) Final Date: 04 August 2022 16:06 S
[2022-08-04 07:11] VITALS: BP 133/76; PULSE 115; RESP 14; TEMP 36.8; O2SAT 94; BMI 29.0
[2022-08-04 07:32] VITALS: PULSE 70
--- NOTE | 2022-08-04 07:44 | W.ED.EXTPRO ---
HPI - Extremity Problem General: Chief complaint: Extremity Problem,Nontraumatic Stated complaint: possible blood clot Time Seen by Provider: 08/04/22 06:38 Source: patient Mode of arrival: ambulatory History of Present Illness: 46-year-old male was recently seen in the emergency room by myself at that time he was found to have a mass near the pancreas and the stomach it appeared to erode through the gastric wall that also had multiple areas of involvement in the liver on further outpatient evaluation was thought to be gastric cancer we had planned to do a liver biopsy but that was canceled instead an EGD was done with the biopsy it shows adeno CA there is still outstanding special staining to confirm primary source of esophageal gastric or pancreatic. So far he has not initiated any treatment. He was seen yesterday to discuss with Dr. Ravi and was noted to have tachypnea and tachycardia he was advised to come to the emergency room Dr. Ravi and make contact with us he did not come until this morning on arrival here complaining of bilateral leg swelling and discomfort as well as conversational dyspnea and exertional dyspnea no chest pain. MD Complaint: extremity swelling Onset (ago): week(s) Location: lower extremity Quality: aching Relieving factors: nothing Exacerbating factors: nothing Associated symptoms: Reports no associated symptoms and short of breath; Deny arthralgias, chest pain, fever(s), myalgias, rash or other Review of Systems Const: Denies: fever(s) ENMT: Denies: throat pain, ear or mastoid pain, nasal discharge or nasal congestion Card: Denies: chest pain Resp: Denies: dyspnea, productive cough or non-productive cough GI: Reports: abdominal pain and nausea; Denies: vomiting, coffee ground emesis or diarrhea : Denies: flank pain, dysuria, urinary frequency or urinary urgency Skin/Breast: Denies: rash PFSH ED PFSH: Medical History Anemia Cancer, metastatic to liver Daily consumption of alcohol 12 beer day years Pancreatic mass Surgical History History of hip replacement Right 09/01/21 Family History Mother Hypertension Denies family history of Dementia Cancer Stroke Social History Smoking and tobacco status: never smoked Second hand smoke exposure: No Smoking risk assessment/counseling performed?: No Alcohol intake: current Alcohol intake frequency: 3 or more drinks per day Alcohol type: beer Counseling given: No Desire information about substance/drug rehabilitation?: No Counseling given: No Adopted: No Caregiver/support person: No Lives independently: Yes Household members: spouse Housing: House Marital status: Number of children: 3 Highest education level completed: High School Graduate service: No Current occupational status: employed Pets and animals: No Physical Exam Const: GENERAL APPEARANCE: cooperative and comfortable ORIENTATION/CONSCIOUSNESS: Yes awake, Yes oriented to person, Yes oriented to place and Yes oriented to time HENMT: COMMON NORMALS: normocephalic, atraumatic and hearing grossly normal bilaterally HEAD & SCALP: normocephalic and atraumatic Resp: COMMON NORMALS: normal respiratory effort, No retractions, No use of accessory muscles and clear to auscultation bilaterally AUSCULTATION: clear to auscultation bilaterally Cardio: COMMON NORMALS: regular rhythm and No murmurs present (Cardio) RATE: tachycardic RHYTHM: regular rhythm GI: COMMON NORMALS: Soft to palpation and No hepatosplenomegaly present AUSCULTATION: Yes normoactive bowel sounds PALPATION: Yes Soft to palpation, No Tenderness to palpation present (GI), No Guarding due to palpation present (GI) and Yes No hepatosplenomegaly present Extremity: COMMON NORMALS: normal to inspection, capillary refill normal, no clubbing, cyanosis or edema, no calf tenderness and no pedal edema Neuro: SENSORIUM/ORIENTATION: Yes oriented to person, Yes oriented to place and Yes oriented to time Skin: COMMON NORMALS: no rashes or lesions noted GENERAL SKIN EXAM: no rashes or lesions noted Course Vital Signs: Vital signs: Vital Signs Temperature 98.0 F 08/04/22 12:27 Pulse Rate 99 08/04/22 12:27 Respiratory Rate 16 08/04/22 12:27 Blood Pressure 126/89 08/04/22 12:27 Pulse Oximetry 99 08/04/22 12:27 Oxygen Delivery Me thod Room Air 08/04/22 08:00 MDM - Extremity (Nontraumatic) Medical Decision Making Bilateral lower extremity DVTs CTA of the chest shows bilateral pulmonary emboli with relatively heavy clot burden no saddle embolism. He is tachycardic there is evidence of mild increased right ventricular pressures but no heart strain on the CT echo done no heart strain noted. EGD reviewed patient had mass present in the gastric mucosa and showed some mild bleeding which is what they biopsied. Discussed with the patient his current condition. He has a PE that is fairly extensive without anticoagulation is likely to propagate and could be fatal. His hemoglobin is dropped down to 8 last week he was 8.8 when he was seen. If we anticoagulate him I am concerned that he will develop worsening GI bleeding. We discussed the risks and the benefits at this point I think he is best off doing the anticoagulation and will transfuse as needed. Given the fact that the most certainty he will bleed and he has been demonstrating signs of ongoing bleeding we will go ahead and transfuse him 1 unit now. He was also given Protonix. We will transfer the patient he will need to be added at tertiary care facility where interventional radiology is present and could intervene if he develops significant bleeding from the gastric tumor. Patient understands the risks of bleeding him and his given opportunity to ask questions all of which were answered. Discussed with Dr. Ravi he agrees with the plan. Patient was transferred to [facility] in [place] via air ambulance. He was transfused 1 unit despite his hemoglobin being 8 at the time because of the very high likelihood of active bleeding with the heparin from the stomach mass. Which by appearance of his labs seems to be already bleeding. I am concerned that if we wait until he manifests clinical signs and symptoms of worsening bleeding he may be at significant risk he will likely his hemoglobin dropped precipitously. Medical Records I reviewed the patient's medical records. Lab Data I reviewed the patient's lab results. 08/04/22 08:05 08/04/22 08:05 Radiology Impressions Chest CTA 08/04/22 08:05 IMPRESSION: 1. Extensive bilateral segmental and subsegmental pulmonary emboli mainly in the lower lobes. Proximal main pulmonary arteries are normal. 2. No evidence of RIGHT heart strain. Small amount of reflux into the IVC suggestive of increased RIGHT heart pressures 3. New pulmonary metastasis or pulmonary infarct in the LEFT lower lobe measuring 13 x 10 mm. 4. Hazy opacity RIGHT lower lobe laterally either infectious/inflammatory or pulmonary infarct. 5. Trace LEFT pleural fluid. Slight bibasilar atelectasis. 6. Small amount of perihepatic ascites. 7. Partially visualized lobulated mass involving the dorsal stomach and pancreatic tail with peritoneal carcinomatosis partially visualized similar to previous Notified Homero Kauffman DO at 08/04/2022 9:21 AM. Laboratory Results WBC 16.7 10^3/uL (4.0-10.0) H 08/04/22 08:05 RBC 2.97 10^6/uL (4.1-5.3) L 08/04/22 08:05 Hgb 8.0 g/dL (11.7-16.6) L 08/04/22 08:05 Hct 26.1 % (42.0-52.0) L 08/04/22 08:05 MCV 87.9 fl (80-94) 08/04/22 08:05 MCH 26.9 pg (28.0-34.0) L 08/04/22 08:05 MCHC 30.7 g/dL (30.0-36.0) 08/04/22 08:05 RDW 16.5 % (12.1-15.1) H 08/04/22 08:05 Plt Count 202 10^3/cmm (130-400) 08/04/22 08:05 MPV 11.5 fL (7.4-10.4) H 08/04/22 08:05 Neut % (Auto) 83.0 % 08/04/22 08:05 Lymph % (Auto) 4.7 % 08/04/22 08:05 [place] % (Auto) 6.9 % 08/04/22 08:05 Eos % (Auto) 3.8 % 08/04/22 08:05 Baso % (Auto) 0.5 % 08/04/22 08:05 Neut # (Auto) 13.87 10^3/uL (1.8-7.7) H 08/04/22 08:05 Lymph # (Auto) 0.8 10^3/uL (0.8-4.8) 08/04/22 08:05 [place] # (Auto) 1.2 10^3/uL (0.2-0.9) H 08/04/22 08:05 Eos # (Auto) 0.6 10^3/uL (0.0-0.8) 08/04/22 08:05 Baso # (Auto) 0.1 10^3/uL (0.0-0.1) 08/04/22 08:05 Nucleated RBC % (auto) 0.3 % 08/04/22 08:05 Nucleated RBCs # 0.1 /100WBC 08/04/22 08:05 APTT 45.4 SECONDS (23.9-36.7) H 08/04/22 08:03 Sodium 133 mmol/L (136-145) L 08/04/22 08:05 Potassium 4.3 mmol/L (3.5-5.1) 08/04/22 08:05 Chloride 95 mmol/L (98-107) L 08/04/22 08:05 Carbon Dioxide 24 mmol/L (22-29) 08/04/22 08:05 Anion Gap 18.3 (5-19) 08/04/22 08:05 BUN 14 mg/dL (6-20) 08/04/22 08:05 Creatinine 0.6 mg/dL (0.7-1.2) L 08/04/22 08:05 GFR Calculation 144.4 mL/min (90-130) H 08/04/22 08:05 Glucose 120 mg/dL (65-115) H 08/04/22 08:05 Calculated Osmolality 278 mOsm/kg (285-295) L 08/04/22 08:05 Calcium 8.7 mg/dL (8.5-10.5) 08/04/22 08:05 Total Bilirubin 3.2 mg/dL (0.15-1.2) H 08/04/22 08:05 AST 102 U/L (0-40) H 08/04/22 08:05 ALT 89 U/L (0-41) H 08/04/22 08:05 Alkaline Phosphatase 869 U/L (40-130) H 08/04/22 08:05 Troponin T Baseline 32 ng/L (0-15) H 08/04/22 08:05 Troponin T 120 Minute 30.56 ng/L (0-15) H 08/04/22 10:25 Delta Troponin T -1.44 ABS# (0-10) L 08/04/22 10:25 NT-Pro-B Natriuret Pep 74 pg/mL (0-125) 08/04/22 08:05 Total Protein 6.5 g/dL (6.6-8.7) L 08/04/22 08:05 Albumin 3.3 g/dL (3.5-5.2) L 08/04/22 08:05 Globulin 3.2 g/dL (1.3-4.6) 08/04/22 08:05 Lipase 16 U/L (13-60) 08/04/22 08:05 Blood Type A Positive 08/04/22 08:10 Rho(D) Type Positive 08/04/22 08:10 Antibody Screen Negative 08/04/22 08:10 Crossmatch See Detail 08/04/22 08:10 Discharge Plan Discharge Patient Disposition: Xfer Short-Term Hosp Clinical Impression: Pulmonary embolism, GI bleed, Cancer, metastatic to liver, Deep vein thrombosis (DVT) of both lower extremities Condition: Stable Referrals: Dani Ravi MD [Primary Care Provider] - Coding Level of Care Code ED Field Automobile Adjuster for Scout Ruiz
[2022-08-04 08:00] VITALS: BP 125/81; RESP 16; O2SAT 97
--- NOTE | 2022-08-04 08:05 | CT_ITS ---
WS: [id number] CTA OF THE CHEST WITH PULMONARY EMBOLISM PROTOCOL TECHNIQUE: High-resolution contrast enhanced CTA of the chest with coronal and sagittal reformatted i mages with pulmonary embolism protocol. MIP images are also reviewed. CLINICAL INFORMATION: bilateral LE DVT with hx gastric/pancreatic CA COMPARISON: None. DLP: 396.[address] scans at [facility] use at least one of these dose optimization techniques: automated e xposure control; mA and/or kV adjustment per patient size (includes targeted exams where dose is matc hed to clinical indication); or iterative reconstruction. FINDINGS: Proximal main pulmonary arteries are normal. Extensive filling defects in the segmental and subsegmen jg pulmonary arteries bilaterally mainly in the lower lobes compatible with acute pulmonary embolus. Additional embolus in the posterior segment RIGHT upper lobe. No evidence of RIGHT heart strain. Sma ll amount of reflux into the IVC. New pulmonary nodule/opacity LEFT lower lobe measuring 13 x 10 mm may represent a metastatic lesion v ersus pulmonary infarct. Adjacent feeding partially thrombosed pulmonary artery. New hazy opacity RIG HT lower lobe laterally may represent pulmonary infarct versus infectious or inflammatory opacity. Partially visualized lobulated mass involving the pancreatic tail and dorsal stomach with nodularity in the LEFT upper quadrant and abdominal mesentery compatible with carcinomatosis. Associated soft ti ssue nodularity upper abdomen along the diaphragm. Enlarged cardiophrenic lymph node. This is similar in appearance to the prior studies. CT/CT angio chest PE protcl [id number] IMPRESSION: 1. Extensive bilateral segmental and subsegmental pulmonary emboli mainly in t he lower lobes. Proximal main pulmonary arteries are normal. 2. No evidence of RIGHT heart strain. Small amount of reflux into the IVC sugg estive of increased RIGHT heart pressures 3. New pulmonary metastasis or pulmonary infarct in the LEFT lower lobe measur ing 13 x 10 mm. 4. Hazy opacity RIGHT lower lobe laterally either infectious/inflammatory or p ulmonary infarct. 5. Trace LEFT pleural fluid. Slight bibasilar atelectasis. 6. Small amount of perihepatic ascites. 7. Partially visualized lobulated mass involving the dorsal stomach and pancre atic tail with peritoneal carcinomatosis partially visualized similar to previo us Notified Homero Kauffman DO at 08/04/2022 9:21 AM.
[2022-08-04 08:22] LABS: Basophils # 0.1 10^3/uL (0.0-0.1); Basophils % 0.5 %; Eosinophils # 0.6 10^3/uL (0.0-0.8); Eosinophils % 3.8 %; Hematocrit 26.1 % (42.0-52.0); Lymphocytes # 0.8 10^3/uL (0.8-4.8); Lymphocytes % 4.7 %; Mean Corpuscular HGB Conc 30.7 g/dL (30.0-36.0); Mean Corpuscular Hemoglobin 26.9 pg (28.0-34.0); Mean Corpuscular Volume 87.9 fl (80-94); Mean Platelet Volume 11.5 fL (7.4-10.4); Monocytes # 1.2 10^3/uL (0.2-0.9); Monocytes % 6.9 %; Neutrophils # 13.87 10^3/uL (1.8-7.7); Nucleated Red Blood Cells # 0.1 /100WBC; Nucleated Red Blood Cells % 0.3 %; Platelet Count 202 10^3/cmm (130-400); Red Blood Count 2.97 10^6/uL (4.1-5.3); Red Cell Distribution Width 16.5 % (12.1-15.1); White Blood Count 16.7 10^3/uL (4.0-10.0)
[2022-08-04 08:33] LABS: Potassium 4.3 mmol/L (3.5-5.1)
[2022-08-04] MEDS: iohexol 350 mg/mL 500 mL Btl (per mL) IV (08:41)
[2022-08-04 08:53] LABS: Alanine Aminotransferase 89 U/L (0-41); Albumin Level 3.3 g/dL (3.5-5.2); Alkaline Phosphatase 869 U/L (40-130); Anion Gap 18.3 (5-19); Aspartate Amino Transferase 102 U/L (0-40); Blood Urea Nitrogen 14 mg/dL (6-20); Calcium 8.7 mg/dL (8.5-10.5); Carbon Dioxide 24 mmol/L (22-29); Chloride 95 mmol/L (98-107); Globulin 3.2 g/dL (1.3-4.6); Glomerular Filtration Rate 144.4 mL/min (90-130); Glucose 120 mg/dL (65-115); Lipase 16 U/L (13-60); Osmolality Calculated 278 mOsm/kg (285-295); Sodium 133 mmol/L (136-145); Total Bilirubin 3.2 mg/dL (0.15-1.2); Total Protein 6.5 g/dL (6.6-8.7)
--- NOTE | 2022-08-04 09:32 | USCV_ITS ---
Chaitanya Winston Age: 46 Gender: M : 1975 Exam Date: 08/04/2022 10:02 Ordering Phys: Homero Kauffman DO Technologist: JASIEL [place]am [place] [facility] [place]ication: pe rt heart strain BP: / HR: 113 Rhythm: Sinus Technical Quality: Adequate MEASUREMENTS (Male / Female) Normal Values 2D ECHO LV Diastolic Diameter PLAX 4.4 cm 4.2 - 5.9 / 3.9 - 5.3 cm LV Systolic Diameter PLAX 3.2 cm IVS Diastolic Thickness 1.0 cm 0.6 - 1.0 / 0.6 - 0.9 cm IVS Systolic Thickness 1.1 cm LVPW Diastolic Thickness 1.0 cm 0.6 - 1.0 / 0.6 - 0.9 cm LVPW Systolic Thickness 1.1 cm LVOT Diameter 2.4 cm LV Ejection Fraction 2D Teich 53.6 % LV Ejection Fraction MOD 2C 60.2 % LV Ejection Fraction 2C AL 61.3 % LA Diameter 3.4 cm IVC Diameter 1.1 cm M-MODE Aortic Annulus Diameter 3.3 cm LA Ao Ratio MM 1.1 MV E Point Septal Separation 0.4 cm DOPPLER AV Peak Velocity 135.0 cm/s LVOT Peak Velocity 116.0 cm/s AV Area Cont Eq vti 4.6 cm squared AV Area Cont Eq pk 4.0 cm squared MV Area PHT 4.6 cm squared Mitral E to A Ratio 0.6 MV E' Velocity 34.5 cm/s Mitral E to MV E' Ratio 5.8 Mitral E to LV E' Lateral Ratio 5.2 Mitral E to LV E' Septal Ratio 6.6 TR Peak Velocity 281.0 cm/s TR Peak Gradient 31.6 mmHg TV Peak E Velocity 86.0 cm/s Right Atrial Pressure 9.0 mmHg Pulmonary Artery Systolic Pressu 40.6 mmHg PV Peak Velocity 146.0 cm/s FINDINGS Left Ventricle Left ventricle is normal in size. LV systolic function is normal with EF of 55 to 60%. No regional wall motion normalities are seen. Grade 1 diastolic dysfunction Right Ventricle Normal in size and function Right Atrium Normal in size Left Atrium Dilated Mitral Valve Structurally normal mitral valve. Mild mitral regurgitation Aortic Valve Structurally normal aortic valve. No significant stenosis or regurgitation Tricuspid Valve Mild tricuspid regurgitation. Insufficient TR jet to evaluate RVSP. Pulmonic Valve Not well-visualized Pericardium Normal Aorta Normal in size IVC Appears to be normal CONCLUSIONS LV systolic function is normal with EF 55 to 60%. Grade 1 diastolic dysfunction Left atrial dilation Mild mitral regurgitation Mild tricuspid regurgitation No comparison studies are available Torsten Silver MD (Electronically Signed) Final Date: 04 August 2022 13:20 S
--- NOTE | 2022-08-04 10:10 | ECG_ITS ---
[facility] Test Date: 2022-08-04 Pat Name: Chaitanya Winston Department: Room: Gender: Male [employer]: : 1975 Requested By: Homero Wilcox Order Number: [id number] Lit MD: Torsten Silver M.D. Measurements Intervals [place] Rate: 98 P: -62 [place]: 154 QRS: 31 QRSD: 89 T: -8 QT: 365 QTc: 466 Interpretive Statements ECTOPIC ATRIAL RHYTHM NONSPECIFIC T-WAVE ABNORMALITY No previous ECG available for comparison Electronically Signed On 08-04-2022 13:50:20 CDT by Torsten Silver M.D. [email or web address]
[2022-08-04 10:34] LABS: Troponin(5th) Baseline 32 ng/L (0-15)
[2022-08-04 10:46] LABS: NT Pro B Type Natriuretic Pept 74 pg/mL (0-125)
[2022-08-04 10:48] LABS: Troponin 5 2HR 30.56 ng/L (0-15)
[2022-08-04] MEDS: heparin 5,000 unit/mL INJ 1 mL IV (10:50)
[2022-08-04] MEDS: pantoprazole 40 mg SDV IVP (10:50)
[2022-08-04] MEDS: heparin drip 25,000 UNIT/500 ML PREMIX 27.18 UNIT IV (10:51)
[2022-08-04 10:52] VITALS: RESP 16
[2022-08-04 10:52] LABS: Troponin 5 2HR Delta -1.44 ABS# (0-10)
[2022-08-04] MEDS: morphine 4 mg/mL SDV 1 mL IVP (10:52)
[2022-08-04 11:08] LABS: Partial Thromboplastin Time 45.4 SECONDS (23.9-36.7)
[2022-08-04 12:00] VITALS: BP 129/86; PULSE 99; RESP 16; TEMP 36.7; O2SAT 99
[2022-08-04 12:27] VITALS: BP 126/89; PULSE 99; RESP 16; TEMP 36.7; O2SAT 99
== END 2022-08-04 12:29 | disposition short-term general hospital (02) ==
PROVIDERS: Emergency Provider Family Medicine; PCP Internal Medicine Hematology & Oncology
DX: I26.99 Other pulmonary embolism without acute cor pulmonale (principal); K92.2 Gastrointestinal hemorrhage, unspecified; I82.411 Acute embolism and thrombosis of right femoral vein; I82.431 Acute embolism and thrombosis of right popliteal vein; I82.451 Acute embolism and thrombosis of right peroneal vein; I82.4Z1 Acute embolism and thrombosis of unspecified deep veins of right distal lower extremity; I82.493 Acute embolism and thrombosis of other specified deep vein of lower extremity, bilateral; C25.9 Malignant neoplasm of pancreas, unspecified; C78.7 Secondary malignant neoplasm of liver and intrahepatic bile duct
CPT/HCPCS: 36415; 36430; 71275; 80053; 83690; 83880; 84484; 85025; 85730; 86850; 86900; 86920; 93005; 93306; 93970; 96365; 96375; 99285; C9113; J1644; J2270; P9016; Q9967